=== PATIENT | female | born 1970 | race Two or more races ===

== ENCOUNTER 2024-06-03 08:55 | Outpatient (CLI) | payer OTHER | END 2024-06-03 09:01 | disposition home or self-care (01) | LOC: SONOGRAMA 08:55 | PROVIDERS: ATTEND Obstetrics & Gynecology | DX: N84.0 Polyp of corpus uteri (principal) ==

== ENCOUNTER 2025-01-15 10:08 | Day surgery (SDC) | payer OTHER ==
[2025-01-09 14:01] VITALS: BP 129/79
[~2025-01-15] VITALS: Ht 157.5 cm; Wt 68.0 kg
[~2025-01-15 10:08] MED LIST: BUSPIRONE HCL7.5 MG PO; PAXIL20 MG PO
[2025-01-15] MEDS ORDERED: POVIDONE-IODINE 118 ML BOTT TOP ONE (13:27)
[2025-01-15] MEDS ORDERED: KETOROLAC TROMETHAMINE 30 MG VIAL IV STA (15:26)
== END 2025-01-15 20:50 | disposition home or self-care (01) ==
LOC: CIR.AMB 10:08
PROVIDERS: ATTEND Obstetrics & Gynecology
DX: D25.0 Submucous leiomyoma of uterus (principal); N95.0 Postmenopausal bleeding; N84.0 Polyp of corpus uteri